=== PATIENT | female | born 1955 | race Caucasian/White ===

== ENCOUNTER → 2020-06-16 13:21 | Outpatient (CLI) | payer BC, SELFPAY ==
--- NOTE | 2020-06-16 | DI.MG.S_ITS ---
BILATERAL DIGITAL DIAGNOSTIC MAMMOGRAM 3D/2D: 06/16/2020 CLINICAL: Right breast pain. Comparison is made to exams dated: 07/18/2019 mammogram, 04/19/2018 mammogram, and 02/16/2017 mammogram - [facility]. There are scattered fibroglandular elements in both breasts. No significant masses, calcifications, or other findings are seen in either breast. Possible left breast grouped calcifications in the anterior upper outer quadrant are not confirmed on spot magnification views and consistent with artifact. IMPRESSION: NEGATIVE There is no abnormality seen in the right breast to correspond with the diffuse area of clinical concern and pain, however, recommend clinical follow up for persistent or worsening symptoms, or development of any clinically suspicious findings. There is no mammographic evidence of malignancy. A 1 year screening mammogram is recommended. Findings and recommendations were conveyed to the patient during today's evaluation. This exam was interpreted at Station ID: [id number]. NOTE: For mammograms, a report in lay terms will be sent to the patient. Approximately 15% of breast malignancies will not be visualized mammographically. In the management of a palpable breast mass, a negative mammogram must not discourage biopsy of a clinically suspicious lesion. Electronically Signed By: Tristan Madrid M.D. aty/:06/16/2020 16:37:02 letter sent: Clinical Evaluation ACR BI-RADS Category 1: Negative 3341F
== END ==
PROVIDERS: PCP Family Medicine; Referring Provider Family Medicine; Visit Provider Nurse Practitioner Family
DX: N64.4 Mastodynia (principal)
CPT/HCPCS: 77066; G0279

== ENCOUNTER → 2021-07-02 09:57 | Outpatient (CLI) | payer BC, SELFPAY ==
--- NOTE | 2021-07-02 | DI.MG.S_ITS ---
BILATERAL DIGITAL SCREENING MAMMOGRAM 3D/2D WITH CAD: 07/02/2021 CLINICAL: Routine screening. Comparison is made to exams dated: 06/16/2020 mammogram - [facility], 07/18/2019 mammogram, and 04/19/2018 mammogram - [facility]. There are scattered fibroglandular elements in both breasts. Current study was also evaluated with a Computer Aided Detection (CAD) system. No significant masses, calcifications, or other findings are seen in either breast. There has been no significant interval change. IMPRESSION: NEGATIVE There is no mammographic evidence of malignancy. A 1 year screening mammogram is recommended. This exam was interpreted at Station ID: [id number]. NOTE: For mammograms, a report in lay terms will be sent to the patient. Approximately 15% of breast malignancies will not be visualized mammographically. In the management of a palpable breast mass, a negative mammogram must not discourage biopsy of a clinically suspicious lesion. Electronically Signed By: Jan augustine/quentin:07/02/2021 10:49:44 letter sent: Normal Exam ACR BI-RADS Category 1: Negative 3341F
== END ==
PROVIDERS: PCP Family Medicine; Referring Provider Family Medicine; Visit Provider Family Medicine
DX: Z12.31 Encounter for screening mammogram for malignant neoplasm of breast (principal)
CPT/HCPCS: 77063; 77067

== ENCOUNTER → 2022-07-10 10:03 | Outpatient (CLI) | payer BC, SELFPAY ==
--- NOTE | 2022-07-10 | DI.MG.S_ITS ---
BILATERAL DIGITAL SCREENING MAMMOGRAM 3D/2D WITH CAD: 07/10/2022 CLINICAL: Routine screening. Comparison is made to exams dated: 07/02/2021 mammogram, 06/16/2020 mammogram - [facility], and 07/18/2019 mammogram - [facility]. There are scattered areas of fibroglandular density in both breasts (category b / 25%-50% glandular tissue). Current study was also evaluated with a Computer Aided Detection (CAD) system. There is a possible developing oval equal density focal asymmetry in the right breast at 12 o'clock middle depth. This is more prominent. No other significant masses, calcifications, or other findings are seen in either breast. IMPRESSION: INCOMPLETE: NEEDS ADDITIONAL IMAGING EVALUATION The possible developing oval equal density focal asymmetry in the right breast is indeterminate. Additional views with possible ultrasound are recommended. Based on the Tyrer Cuzick model (a risk assessment model) the patient's lifetime risk is 13.6% and her 10 year risk is 6.7%. According to the ACR, ACS, and NCCN guidelines, an annual breast MRI exam along with mammogram is recommended if the patient's lifetime risk is 20% or greater. This exam was interpreted at Station ID: [id number]. NOTE: For mammograms, a report in lay terms will be sent to the patient. Approximately 15% of breast malignancies will not be visualized mammographically. In the management of a palpable breast mass, a negative mammogram must not discourage biopsy of a clinically suspicious lesion. Electronically Signed By: Tristan doll/quentin:07/12/2022 07:44:28 letter sent: Additional Imaging Needed ACR BI-RADS Category 0: Incomplete 3340F
== END ==
PROVIDERS: PCP Internal Medicine; Referring Provider Internal Medicine; Visit Provider Internal Medicine
DX: Z12.31 Encounter for screening mammogram for malignant neoplasm of breast (principal)
CPT/HCPCS: 77063; 77067

== ENCOUNTER → 2022-08-03 08:48 | Outpatient (CLI) | payer BC, SELFPAY ==
--- NOTE | 2022-08-03 | DI.MG.S_ITS ---
UNILATERAL RIGHT DIGITAL DIAGNOSTIC MAMMOGRAM 3D/2D WITH ADDITIONAL VIEWS: 08/03/2022 CLINICAL: Additional evaluation requested from prior study. Comparison is made to exams dated: 07/10/2022 mammogram, 07/02/2021 mammogram, and 06/16/2020 mammogram - [facility]. There are scattered areas of fibroglandular density in the right breast (category b / 25%-50% glandular tissue). There is a possible focal asymmetry with an indistinct margin in the right breast at 12 o'clock middle depth. This is less prominent. No other significant masses or calcifications are seen in the breast. IMPRESSION: INCOMPLETE: NEEDS ADDITIONAL IMAGING EVALUATION The possible focal asymmetry in the right breast is indeterminate. A targeted ultrasound is recommended and will immediately follow. Based on the Tyrer Cuzick model (a risk assessment model) the patient's lifetime risk is 13.6% and her 10 year risk is 6.7%. According to the ACR, ACS, and NCCN guidelines, an annual breast MRI exam along with mammogram is recommended if the patient's lifetime risk is 20% or greater. This exam was interpreted at Station ID: [id number]. NOTE: For mammograms, a report in lay terms will be sent to the patient. Approximately 15% of breast malignancies will not be visualized mammographically. In the management of a palpable breast mass, a negative mammogram must not discourage biopsy of a clinically suspicious lesion. Electronically Signed By: Michael Harper M.D. slc/:08/03/2022 09:11:29 ACR BI-RADS Category 0: Incomplete 3340F
--- NOTE | 2022-08-03 08:50 | DI.US.S_ITS ---
LIMITED ULTRASOUND OF RIGHT BREAST: 08/03/2022 CLINICAL: Patient returns today to evaluate a focal asymmetry in the right breast. Comparison is made to exams dated: 08/03/2022 mammogram, 07/10/2022 mammogram, 07/02/2021 mammogram, and 06/16/2020 mammogram - [facility]. Real-time ultrasound of the right breast 12 o'clock region was performed. Beltran scale images of the real-time examination were reviewed. No significant abnormalities were seen sonographically in the right breast in the region of the possible asymmetry. IMPRESSION: NEGATIVE There is no sonographic evidence of malignancy. A 1 year screening mammogram is recommended. Exam findings were conveyed to the patient. This exam was interpreted at Station ID: [id number]. Electronically Signed By: Michael Harper M.D. slc/:08/03/2022 10:03:27 letter sent: Normal Exam Ultrasound BI-RADS: 1 Negative
== END ==
PROVIDERS: PCP Internal Medicine; Referring Provider Internal Medicine; Visit Provider Internal Medicine
DX: R92.8 Other abnormal and inconclusive findings on diagnostic imaging of breast (principal)
CPT/HCPCS: 76642; 77065; G0279

== ENCOUNTER 2022-10-09 08:40 | Emergency (ER) | payer BC, SELFPAY ==
[2022-10-09 08:54] VITALS: BP 162/90; PULSE 75; RESP 18; TEMP 36.7; O2SAT 100; BMI 22.4
--- NOTE | 2022-10-09 11:24 | ED_ITS ---
HPI - Recheck/Abnormal Lab/Rx <VAZQUEZ [place] - Last Filed: 10/09/22 11:33> General Chief Complaint: Recheck/Abnormal Lab/Rx Stated Complaint: poss allergic reaction to heart medication Time Seen by Provider: 10/09/22 10:14 Source: patient Mode of arrival: Ambulatory History of Present Illness HPI narrative: 67-year-old female, with history atrial fibrillation and Watchman procedure, presents to the emergency department with complaints of abnormal bruising x2 weeks. Patient noticed a lump and bruise on her left forearm, that she became concerned about, and wanted to make sure she is not having a allergic reaction to her Plavix. Patient has been on Eliquis for over 1 year, after diagnosis of atrial fibrillation and ablation procedure. Patient was switched to Plavix 2 weeks ago after the watchman procedure. Patient has noticed increased bruising ever since she started on the Plavix. Increased stress at home as she is the mother of the bride for an upcoming wedding. Related Data Home Medications Medication Instructions Recorded Confirmed apixaban 5 mg tablet (Eliquis) 5 mg PO BID 10/22/21 12/03/21 cholecalciferol (vitamin D3) 125 125 mcg PO DAILY 10/22/21 12/03/21 mcg (5,000 unit) capsule estradiol 0.01% (0.1 mg/gram) 1 g vaginal 2XW 10/22/21 12/03/21 vaginal cream multivitamin 1 tab PO DAILY 10/22/21 12/03/21 metoprolol succinate 25 mg 25 mg PO DAILY 12/03/21 12/03/21 tablet,extended release 24 hr Allergies Allergy/AdvReac Type Severity Reaction Status Date / Time Penicillins AdvReac Mild Rash Verified 10/09/22 08:54 Review of Systems <VAZQUEZ [place] - Last Filed: 10/09/22 11:33> Review of Systems Narrative: Narrative: See HPI. GENERAL: Denies chills, fatigue, fever, sweats. HEENT: Denies sinus pain, ear pain, sore throat, difficulty swallowing, dizziness. RESPIRATORY: Denies dyspnea, cough, wheezing, sputum. CARDIOVASCULAR: Denies chest pain, palpitations, edema. GASTROINTESTINAL: Denies nausea, vomiting, abdominal pain, diarrhea, constipation. : Denies dysuria, frequency, incontinence, hematuria, urinary retention, flank pain. MSK: Denies weakness, joint pain, or bony pain. SKIN: Denies rash, skin lesions, or pruritis. Endorses bruising over multiple areas of her body, including left forearm. NEUROLOGIC: Denies weakness, dizziness, headache, numbness, confusion. PSYCHIATRIC: No concerning psychosocial issues. Patient History <VAZQUEZ [place] - Last Filed: 10/09/22 11:33> Medical History Chronic anticoagulation Menopausal syndrome Paroxysmal atrial fibrillation (~2020) Sleep disorder Surgical History Anesthesia History of back surgery (~12/1987) History of back surgery (~05/1988) History of bunionectomy (~2011) History of knee surgery (~2010) History of rotator cuff surgery (~09/2009) Family History Father Diabetes mellitus Hypertension Mother Pancreatic cancer Grandfather Eye cancer Stroke Grandmother Mental health problem Bowel disease Grandfather Stroke Grandmother Bowel disease Social History details: ([place]), retired teacher, 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 HEAD: Atraumatic. Normocephalic. EYES: Pupils equal round and reactive. Extraocular motions intact. No scleral icterus, injection or drainage. ENT: Nose without bleeding, purulent drainage. Throat without erythema, tonsillar hypertrophy or exudate. Uvula midline. Airway patent. TMs and canals clear. No sinus tenderness. NECK: Trachea midline. No JVD or lymphadenopathy. Nontender. CARDIOVASCULAR: Regular rate and rhythm without murmurs, peripheral pulses intact, cap refill <2 sec. RESPIRATORY: Breath sounds equal and clear bilaterally. No wheezes, rales, or rhonchi. No cough. No increased respiratory effort. No accessory muscle use. GASTROINTESTINAL: Abdomen soft, non-tender, nondistended without guarding or rebound. No suprapubic pain. MSK: Moves all extremities. Normal range of motion, no clubbing or edema. Neurovascularly intact. NEURO: A&O x 3. SKIN: Warm, dry, no rashes or lesions noted. Multiple areas of bruising on extremities. Mild 1.5 cm lump and bruising noted on left midforearm. No increased redness, warmth or discoloration. Initial Vital Signs Initial Vital Signs: Vital Signs Temperature 98.0 F 10/09/22 08:54 Pulse Rate 75 10/09/22 08:54 Respiratory Rate 18 10/09/22 08:54 Blood Pressure 162/90 H 10/09/22 08:54 Pulse Oximetry 100 10/09/22 08:54 Oxygen Delivery Method Room Air 10/09/22 08:54 Reviewed <Shameka Aguayo DO - Last Filed: 10/10/22 07:09> Initial Vital Signs Initial Vital Signs: Vital Signs Temperature 98.0 F 10/09/22 08:54 Pulse Rate 75 10/09/22 08:54 Respiratory Rate 18 10/09/22 08:54 Blood Pressure 162/90 H 10/09/22 08:54 Pulse Oximetry 100 10/09/22 08:54 Oxygen Delivery Method Room Air 10/09/22 08:54 Course <VAZQUEZ [place] - Last Filed: 10/09/22 11:33> Vital Signs Vital signs: Vital Signs - 8 hr 10/09/22 08:54 Temperature 98.0 F Pulse Rate 75 Respiratory Rate 18 Blood Pressure 162/90 H Pulse Oximetry 100 Oxygen Delivery Method Room Air <Shameka Aguayo DO - Last Filed: 10/10/22 07:09> Vital Signs Vital signs: Vital Signs - 8 hr 10/09/22 08:54 Temperature 98.0 F Pulse Rate 75 Respiratory Rate 18 Blood Pressure 162/90 H Pulse Oximetry 100 Oxygen Delivery Method Room Air MDM - Recheck/Abnormal Lab/Rx <VAZQUEZ [place] - Last Filed: 10/09/22 11:33> Differential Diagnosis Differential diagnosis: Likely other (Abnormal bruising); Unlikely warfarin- induced coagulopathy MDM Narrative Medical decision making narrative: 67-year-old female, with history of AFib, ablation, watchman's procedure and anticoagulation, presents to the emergency department with concerns she is have coagulopathy secondary to her Plavix usage. Patient has not had any issues with the Eliquis that she is been taking for over a year, but has noticed increased bruising since beginning Plavix 2 weeks ago. Assessment was encouraging and I do not suspect anything dangerous at this time. Discussed possible causes of this bruising and encourage patient to follow up with certified financial planner 1st thing Tuesday. Strict ER precautions provided. Patient and spouse verbalized understanding and were agreeable with course of action. Discharge Plan Departure Patient Disposition: Home Clinical Impression: Abnormal bruising Activity Restrictions/Additional Instructions: *You have been diagnosed with abnormal bruising secondary to Plavix usage. My assessment was encouraging and I do not suspect anything dangerous at this time. This appears to be standard reaction to Plavix usage. I strongly recommend you follow-up with your certified financial planner 1st thing Tuesday to make them aware of your bruising. For any worsening symptoms that include shortness of breath, chest pain, numbness and tingling or worsening symptoms, please feel free to return to the emergency department. *What to do: *Please continue to take your regular medications as directed. [ ] New medication prescriptions sent to your pharmacy: [ ] [ ] New medication written as a paper prescription [ x] No new medications given *Please follow up with your primary care provider in 2-3 days, call for an appointment. Let them know you were seen in the Emergency Department and that we ask that you be seen in follow up. We will electronically transmit a record of today's note if your PCP is in our system *If you do not have a primary care provider please contact the [facility] Resource line at [phone]. They will ask some questions about your medical history and help get you set up with a doctor in the community. ? Return to ER if you should have any new, worsening or concerning symptoms, such as worsening pain, severe headache, confusion, chest pain, difficulty breat shannon, fever greater than 101 F, shaking chills, persistent vomiting to the point that you cannot drink fluids, or other new or worsening symptoms. Prescriptions: No Action Eliquis 5 mg tablet 5 mg PO BID Patient Comments: take 1 tablet by mouth twice a day estradiol 0.01 % (0.1 mg/gram) cream 1 g vaginal 2XW multivitamin Tablet 1 tab PO DAILY cholecalciferol (vitamin D3) 125 mcg (5,000 unit) capsule 125 mcg PO DAILY metoprolol succinate 25 mg tablet extended release 24 hr 25 mg PO DAILY Patient Comments: take 1 tablet by mouth once daily Referrals: Yovani Lundberg MD [Primary Care Provider] - Stand Alone Forms: Patient Portal/API <Shameka Aguayo DO - Last Filed: 10/10/22 07:09> Cosign ED Attending Cosignature Attestation: I was immediately available in the department for consultation. Documentation has been reviewed.
== END 2022-10-09 11:27 | disposition home or self-care (01) ==
PROVIDERS: Emergency Provider Registered Nurse; PCP Internal Medicine
DX: S50.12XA Contusion of left forearm, initial encounter (principal); X58.XXXA Exposure to other specified factors, initial encounter
CPT/HCPCS: 99281

== ENCOUNTER → 2022-10-25 09:01 | Outpatient (CLI) | payer BC, SELFPAY ==
[2022-10-25 10:27] LABS: Add Manual Diff / Slide Review NO; Basophils Absolute Auto 0 /uL (0-100); Basophils Percent Auto 0.9 % (0-2); Eosinophils Absolute Auto 200 /uL (0-450); Eosinophils Percent Auto 3.8 % (2-4); Hematocrit 40.4 % (36-46); Hemoglobin 13.6 g/dL (12.0-16.0); Lymphocytes Absolute Auto 1600 /uL (1100-4500); Lymphocytes Percent Auto 37.7 % (25-40); Mean Corpuscular HGB Conc 33.7 % (30-36); Mean Corpuscular Hemoglobin 29.7 PG (26-34); Mean Corpuscular Volume 88.3 fL (80-100); Monocytes Absolute Auto 400 /uL (0-900); Monocytes Percent Auto 9.4 % (3-14); Neutrophils Absolute Auto 2000 /uL (1500-7000); Neutrophils Percent Auto 48.2 % (50-75); Platelet Count 210 X10^3/uL (150-400); Red Blood Cell Count 4.58 X10^6/uL (4.0-5.2); Red Cell Distribution Width 13.8 % (11.6-14.8); White Blood Cell Count 4.1 X10^3/uL (4.5-11.0)
[2022-10-25 10:51] LABS: Alanine Aminotransferase 26 IU/L (<35); Albumin 3.9 g/dL (3.5-5.0); Albumin Globulin Ratio 1.2 (1.0-2.8); Alkaline Phosphatase 89 U/L (38-126); Aspartate Aminotransferase 42 IU/L (14-36); Bilirubin Total 1.1 mg/dL (0.2-1.3); Blood Urea Nitrogen 13 mg/dL (7-17); Carbon Dioxide 29 mmol/L (22-32); Chloride 107 mmol/L (98-107); Cholesterol 205 mg/dL (140-199); Estimated Glomerular Filt Rate > 60 mL/min (>60); Globulin 3.2 g/dL (1.7-4.1); Glucose 92 mg/dL (80-110); HDL Cholesterol 73 mg/dL (40-60); HEMOLYSIS 16 (0-50); LDL Cholesterol Calculated 107 mg/dL (<100); Potassium 4.3 mmol/L (3.4-5.1); Sodium 138 mmol/L (137-145); Total Protein 7.1 g/dL (6.3-8.2); Triglycerides 125 mg/dL (35-150)
[2022-10-25 11:14] LABS: TSH w/ Reflex to FT4 1.69 uIU/mL (0.47-4.68)
== END ==
PROVIDERS: PCP Internal Medicine; Referring Provider Internal Medicine; Visit Provider Internal Medicine
DX: E78.2 Mixed hyperlipidemia (principal); Z79.01 Long term (current) use of anticoagulants; I48.0 Paroxysmal atrial fibrillation
CPT/HCPCS: 36415; 80053; 80061; 84443; 85025

== ENCOUNTER → 2023-02-15 09:42 | Outpatient (CLI) | payer BC, SELFPAY ==
--- NOTE | 2023-02-15 09:43 | DI.RAD.S_ITS ---
Bone Density Report Name: ESCOBAR RUELAS Age: 67 Sex: Female Ethnicity: White Date of : 1955 Indication: postmenopausal; screening for osteoporosis; Referring Provider: MAURICE BLANCA Study: Bone densitometry was performed. Exam Date: February 15, 2023 Accession number: [id number] Bone Density: Region BMD T-score Z-score Classification AP Spine(L1, L2, L3) 1.114 0.9 2.6 Normal Femoral Neck (Left) 0.682 -1.5 0.0 Osteopenia Total Hip (Left) 0.795 -1.2 0.1 Osteopenia Femoral Neck (Right) 0.687 -1.5 0.1 Osteopenia Total Hip (Right) 0.767 -1.4 -0.2 Osteopenia Total Hip Mean 0.781 -1.3 -0.1 Osteopenia World Health Organization criteria for BMD impression classify patients as: Normal (T-score at or above -1.0), Osteopenia (T-score between -1.0 and -2.5), or Osteoporosis (T-score at or below -2.5). 10-year Fracture Risk(1): Major Osteoporotic Fracture 8.5% Hip Fracture 1.0% Reported Risk Factors: [place] (), Neck BMD=0.682, BMI=22.4 (1) FRAX(R) Version 3.08. Fracture probability calculated for an untreated patient. Fracture probability may be lower if the patient has received treatment. Impression: The patient has low bone mass, based on the Left Femoral Neck T-score. The patient has an estimated ten-year risk of hip fracture of 1% and an estimated ten-year risk of major fracture of 8.5%, based on the WHO FRAX algorithm. Discussion: BONE DENSITY IS LOW AT ONE OR MORE SKELETAL SITES. This patient's lowest T-score is low at one or more skeletal sites. It meets the World Health Organization's (WHO) criteria for low bone mass (T-score between -1.0 and -2.5). The patient's 10-year risk of fracture as calculated by FRAX is less than the threshold where pharmacological therapy is recommended by the National Osteoporosis Foundation (NOF). However, all treatment decisions require clinical judgment and consideration of individual patient factors, including patient preferences, comorbidities, previous drug use, risk factors not captured in the FRAX model (e.g., frailty, falls, vitamin D deficiency, increased bone turnover, interval significant decline in bone density) and possible under or overestimation of fracture risk by FRAX. The patient should follow a healthful lifestyle (good nutrition with adequate calcium and vitamin D, and appropriate weight-bearing exercise). Follow-Up: Consider repeating this study in 2 to 3 years to reassess this patient's status, or sooner if there is some new clinical indication. Reported by: PRIYANKA QIU MD on 02/15/2023 10:08:00 AM.
== END ==
PROVIDERS: PCP Internal Medicine; Referring Provider Internal Medicine; Visit Provider Internal Medicine
DX: M85.89 Other specified disorders of bone density and structure, multiple sites (principal)
CPT/HCPCS: 77080

== ENCOUNTER → 2023-07-19 14:20 | Outpatient (CLI) | payer BC, SELFPAY ==
--- NOTE | 2023-07-19 14:21 | DI.MG.S_ITS ---
BILATERAL DIGITAL SCREENING MAMMOGRAM 3D/2D WITH CAD: 07/19/2023 CLINICAL: Routine screening. Family history of breast cancer. Comparison is made to exams dated: 07/10/2022 mammogram, 07/02/2021 mammogram, and 06/16/2020 mammogram - [facility]. There are scattered areas of fibroglandular density in both breasts (category b / 25%-50% glandular tissue). Current study was also evaluated with a Computer Aided Detection (CAD) system. No significant masses, calcifications, or other findings are seen in either breast. There has been no significant interval change. IMPRESSION: NEGATIVE There is no mammographic evidence of malignancy. A 1 year screening mammogram is recommended. Based on the Tyrer Cuzick model (a risk assessment model) the patient's lifetime risk is 13.0% and her 10 year risk is 6.6%. According to the ACR, ACS, and NCCN guidelines, an annual breast MRI exam along with mammogram is recommended if the patient's lifetime risk is 20% or greater. This exam was interpreted at Station ID: [id number]. NOTE: For mammograms, a report in lay terms will be sent to the patient. Approximately 15% of breast malignancies will not be visualized mammographically. In the management of a palpable breast mass, a negative mammogram must not discourage biopsy of a clinically suspicious lesion. Electronically Signed By: Luz Staley M.D., PH.D eb/penrad:07/19/2023 15:51:47 letter sent: Normal Exam ACR BI-RADS Category 1: Negative 3341F
== END ==
LOC: MAMMO 14:21
PROVIDERS: PCP Internal Medicine; Referring Provider Internal Medicine; Visit Provider Internal Medicine
DX: Z12.31 Encounter for screening mammogram for malignant neoplasm of breast (principal); R92.323 Mammographic fibroglandular density, bilateral breasts; Z80.3 Family history of malignant neoplasm of breast
CPT/HCPCS: 77063; 77067

== ENCOUNTER → 2024-03-28 09:53 | Outpatient (CLI) | payer BC, SELFPAY ==
[2024-03-28 11:36] LABS: BUN Creatinine Ratio 24.2 (6-22); Blood Urea Nitrogen 16 mg/dL (7-17); Calcium 9.6 mg/dL (8.4-10.2); Carbon Dioxide 28 mmol/L (22-32); Chloride 106 mmol/L (98-107); Cholesterol 215 mg/dL (140-199); Estimated Glomerular Filt Rate > 60 mL/min (>60); Glucose 91 mg/dL (80-110); HDL Cholesterol 83 mg/dL (40-60); HEMOLYSIS < 15 (0-50); LDL Cholesterol Calculated 117 mg/dL (<100); Potassium 4.3 mmol/L (3.4-5.1); Sodium 138 mmol/L (137-145); Triglycerides 77 mg/dL (35-150)
== END ==
LOC: LAB 09:53
PROVIDERS: PCP Internal Medicine; Referring Provider Internal Medicine; Visit Provider Internal Medicine
DX: E78.2 Mixed hyperlipidemia (principal); I48.0 Paroxysmal atrial fibrillation; Z79.01 Long term (current) use of anticoagulants; Z78.0 Asymptomatic menopausal state
CPT/HCPCS: 36415; 80048; 80061

== ENCOUNTER → 2024-07-20 16:31 | Outpatient (CLI) | payer BC, SELFPAY ==
--- NOTE | 2024-07-20 16:35 | DI.MG.S_ITS ---
MM screening mammo BI: 07/20/2024. BI-RADS: 1 CLINICAL: 69-year old female for bilateral screening mammogram. Tyrer-Cuzick lifetime risk of 7.3%. Current reported family history of breast cancer: mother. PRIOR EXAMS 07/19/2023, 08/03/2022, 07/10/2022, 07/02/2021, 06/16/2020. MAMMOGRAPHY TECHNIQUE: 2D and 3D (tomosynthesis) digital mammographic views obtained, with additional images as needed for full coverage. Current study was also evaluated with a Computer Aided Detection (CAD) system. DENSITY B. There are scattered areas of fibroglandular density. MAMMOGRAPHY FINDINGS Bilateral: No suspicious mass, asymmetry, microcalcification, or other abnormality seen. IMPRESSION: * No evidence of malignancy. RECOMMENDATIONS Bilateral * Annual screening mammography. OVERALL ASSESSMENT CATEGORY BI-RADS-1: Negative. The [employer] recommends annual screening mammography beginning at age 40 for women with average risk of breast cancer. ELECTRONICALLY SIGNED: Jessica Jeffrey M.D. on 07/23/2024 at 01:16:59 PM PT Interpreting Station ID: [id number]
== END ==
PROVIDERS: PCP Internal Medicine; Referring Provider Internal Medicine; Visit Provider Internal Medicine
DX: Z12.31 Encounter for screening mammogram for malignant neoplasm of breast (principal); Z80.3 Family history of malignant neoplasm of breast
CPT/HCPCS: 77063; 77067

== ENCOUNTER → 2025-04-17 08:47 | Outpatient (CLI) | payer BC, SELFPAY ==
--- NOTE | 2025-04-17 08:49 | DI.RAD.S_ITS ---
PROCEDURE: XR KNEE RT 3V INDICATIONS: right knee pain TECHNIQUE: 3 views of the knee were acquired. COMPARISON: None. FINDINGS: Bones: No fractures or dislocations. Moderate tricompartmental osteoarthritis most notably in lateral femoral tibial compartment. No significant patellar subluxation. No suspicious bony lesions. Soft tissues: Moderate to large suprapatellar joint effusion. No suspicious soft tissue calcifications. IMPRESSION: No acute fracture or dislocation. Moderate tricompartmental osteoarthritis and moderate to large joint effusion as above. Dictated by: Jordan Marie M.D. on 04/17/2025 at 16:36 Approved by: Jordan Marie M.D. on 04/17/2025 at 16:37
[2025-04-17 10:02] LABS: Blood Urea Nitrogen 18 mg/dL (7-17); Calcium 9.2 mg/dL (8.4-10.2); Carbon Dioxide 30 mmol/L (22-32); Chloride 107 mmol/L (98-107); Cholesterol 228 mg/dL (140-199); Estimated Glomerular Filt Rate > 60 mL/min (>60); Glucose 62 mg/dL (70-99); HDL Cholesterol 93 mg/dL (40-60); HEMOLYSIS < 15 (0-50); Potassium 4.4 mmol/L (3.4-5.1); Sodium 141 mmol/L (137-145); Triglycerides 82 mg/dL (35-150)
== END ==
PROVIDERS: PCP Internal Medicine; Referring Provider Internal Medicine; Visit Provider Internal Medicine
DX: M17.11 Unilateral primary osteoarthritis, right knee (principal); M25.561 Pain in right knee; M25.461 Effusion, right knee; E78.2 Mixed hyperlipidemia
CPT/HCPCS: 36415; 73562; 80048; 80061; 84450